=== PATIENT | male | born 1945 | race Caucasian/White ===

== ENCOUNTER 2025-06-23 08:41 | Outpatient (AMB) | payer BC, SELFPAY ==
--- NOTE | 2025-06-23 08:42 | A.OFFVIS_ITS ---
Intake Visit Reasons: 6m Allergies No Known Allergies Allergy (Verified 06/22/25 09:35) Medication List - Last Reconciled 06/23/25 by Jennifer Irving MD lovastatin 20 mg PO QPM oxcarbazepine 600 mg PO BID HPI Comments Details: 80 yr old man with Sz disorder. No Sz recurrence. Noted to be forgetful if something out of routine happens. Lives with and gets agitated at times. Lives with with mental problems. Walks 5 days a week. Still driving is slightly declining, mostly local. . Feels fine with no seizures or side effects. Routines are normal. Walks 45-60 minutes. Runs errands. Spends time with daughter. Watches TV and uses ipad. Still socailizes. He has a history of seizures that started in October of 1999 with nocturnal generalized tonic-clonic seizure. His MRI was unremarkable except for some nonspecific T2 hyperintensities. He was put on oxcarbazepine and has been well controlled. Prior to that he was on carbamazepine and had developed a drug rash. He's had no seizure recurrence and more than 10 years. His EEGs have been mildly abnormal due to bursts of sharp theta discharges in the temporal regions, left greater than right. .Doing well. Sleeps well. Exercises 1 hour walk daily. He had open-heart surgery 2009 and has been doing well. He had a valve repair and possibly repair of an aneurysm at [facility]. Heart check up [place]. [facility] Medical History (Updated 06/23/25 @ 08:44 by Jennifer Irving MD) MCI (mild cognitive impairment) Coronary atherosclerosis Seizure disorder Review of Systems Const Details: ?ROS: ? General/Constitutional Change in appetite?denies.?Fatigue?denies.?Fever?denies.?Weight gain?denies.? Weight loss?denies. ? Sleep Difficulty getting to sleep?denies.?Difficulty maintaining sleep?denies?.? Daytime sleepiness?denies. ? Respiratory Shortness of breath?denies.?Chest pain?denies. ? Cardiovascular Chest pain at rest?denies.?Chest pain with exertion?denies.?Dizziness?denies.? Fluid accumulation in the legs?denies.?Irregular heartbeat?denies.?Palpitations ?denies. ? Gastrointestinal Constipation?denies.?Diarrhea?denies.?Difficulty swallowing?denies.?Heartburn ?denies.?Nausea?denies. ? Genitourinary Frequent urination?denies.?Urgency?denies.?Incontinence?denies. ? Musculoskeletal Neck pain?denies.?Back pain?denies.?Joint stiffness?denies.?Sciatica?denies. ? Neurologic Difficulty swallowing?denies.?Balance difficulty?denies.?Coordination?normal.? Difficulty speaking?denies.?Dizziness?denies.?Fainting?denies.?Gait abnormality ?denies.?Headache?denies.?Loss of strength?denies.?Loss of use of extremity ?denies.?Low back pain?denies.?Memory loss?denies.?Seizures?denies.?Tics ?denies.?Tingling/Numbness?denies.?Transient loss of vision?denies.?Tremor ?denies. ? Psychiatric Anxiety?denies.?Auditory/visual hallucinations?denies.?Delusions?denies.? Depressed mood?denies.?Stressors?denies.?Suicidal thoughts?denies. Physical Exam Neuro Other: Abnormal neurological findings:??none.? Mental Status:?alert and oriented X 3,?Normal attention, orientation, memory and affect.? Cranial Nerves:?Pupils are equal, round and reactive to light. Fundoscopy shows normal disc bilaterally. External occular muscles are intact. Visual dickey are full, no ptosis. Face is symmetrical, no facial weakness or droop. Facial sensations are normal. Tongue protrudes in midline. Palate elevates symmetrically. Shoulder shrugging is normal..? Motor Examination:?Normal muscle tone, bulk and strength,?No atrophy or fasciculations,?No drift of the extended upper extremities,?Deep tendon reflexes are 2+?,?Plantars are flexor?.? Straight Leg Raising:?90 degrees.? Sensory Exam:?Normal light touch, temperature, pinprick, vibration and joint- position sensations?,?Rhomberg sign is absent.? Coordination:?no ataxia,?no titubation,?yivqbz-mj-tayq, ivjd-uirr-fnmv test and rapid alternating movements were normal.? Gait Exam:?Within normal limits.? Cerebellar Signs:?Vpuqpt-dz-uwuo and tznl-ym-vdyw is normal,?no dysdiadochokinesia?.? Extrapyramidal System:?No tremor, rigidity with normal facial expressions,?No bradykinesia, no bradyphrenia. Normal arm swing and posture. No propulsion or retropulsion.? Speech:?Normal,?no dysphasia or dysarthria..? General Examination GENERAL APPEARANCE:?normal,?in no acute distress.? HEART:?S1, S2 normal,?no murmurs.? LUNGS:?clear anteriorly and posteriorly.? MUSCULOSKELETAL:?normal.? EXTREMITIES:?no edema.? PSYCH:?alert, oriented,?cognitive function intact,?cooperative with exam.? Mini Mental Status Exam Level of Consciousness:?Alert.? Orientation:?Knows correct year, month, date, day and season,?Knows correct city, county and state. Knows correct location and floor.? Registration:?Able to register 3 objects.? Attention:?Serial 7's performed accurately.? Recall:?Able to recall 3 out of 3 objects.? Language:?Normal spontaneous speech, fluency, repetition,naming, comprehension, reading and writing.? Total Score:?30/30.? Results Reviewed Results Reviewed: 01/23/2025 EEG: Background activity consists of 7.5 hertz diffuse slow alpha with sweeper imposed 6-7 hertz theta frequencies consistent with diffuse background slowing. No paroxysmal features are seen Assessment & Plan Assessment & Plan (1) Seizure disorder: Code(s): G40.909 - Epilepsy, unspecified, not intractable, without status epilepticus Category: Medical (2) MCI (mild cognitive impairment): Code(s): G31.84 - Mild cognitive impairment of uncertain or unknown etiology Category: Medical Plan Continue current medications Medications: New oxcarbazepine 600 mg PO BID 180 tabs 3RF 90 days Coding Level of Care Code Est Pt Level 4 (73245) Diagnoses Seizure disorder G40.909 MCI (mild cognitive impairment) G31.84
--- OUTSIDE RECORDS SUMMARY | 2025-06-23 09:20 | XMS_ITS | Clinical Summary ---
Author Organization [facility] Address [address] [place] [address] Phone Care Team Providers Care Principal Librarian Name Role Phone Katey Ayers TRACK LAYING EQUIPMENT OPERATOR Primary Care Provider Allergies No known active allergies Medications aspirin 325 MG EC tablet Take 325 mg by mouth daily. Active lovastatin (MEVACOR) 20 MG tablet Take 20 mg by mouth nightly. Active OXcarbazepine (TRILEPTAL) 600 MG tablet Take 600 mg by mouth 2 (two) times a day. Active amoxicillin (AMOXIL) 500 MG capsule Take four 500mg capsules (2000mg total) one hour prior to dental procedure. Active Active Problems Problem Noted Date Diagnosed Date S/P AVR 06/12/2018 Thoracic aortic aneurysm without rupture 018 Essential hypertension 06/12/2018 Other hyperlipidemia 06/12/2018 Immunizations Immunization Administration Dates Next Due Pneumococcal polysaccharide PPSV23 05/06(Deferred: Other - PCP office confirms that vaccine given june of 2010.) Social History Tobacco Use Types Packs/Day Years Used Date Smoking Tobacco: Never Smokeless Tobacco: Never Tobacco Cessation:Counseling Given: Not Answered Alcohol Use Standard Drinks/Week Comments Never 0 (1 standard drink = 0.6 oz pur e alcohol) Education Answer Date Recorded Are you interested in more education? Not on hilario e 01/20/2023 Are you concerned about learning? Not on file 01/20/2023 No 01/20/2023 No 01/20/2023 Digital Access Answer Date Recorded No 02/11/2023 No 02/11/2023 Reliable internet access at home? Not on file 02/11/2023 Device with a working camera? Not on file Sex and Gender Information Value Date Recorded Sex Assigned at Not on file Legal Sex Male 5:39 PM EST Gender Identity Not on file Sexual Orientation Not on file Last Filed Vital Signs Vital Sign Reading Time Taken Comments Blood Pressure 128/60 07/21/2024 12:39 PM EST Pulse 61 07/21/2024 12:39 PM EST Temperature - - Respiratory Rate 12 07/21/2024 12:39 PM EST Oxygen Saturation 95% 01/07/2014 12:00 AM EDT Inhaled Oxygen Concentration - - Weight 69.9 kg (154 lb) 07/21/2024 12:39 PM EST Height 165.1 cm (5' 5 ) 07/21/2024 10:23 AM EST Body Mass Index 25.63 07/21/2024 10:23 AM EST Plan of Treatment Upcoming Encounters Date Type Department Care Team (Late st Contact Info) Description 07/25/2024 Procedure Pass [facility] [place] [place] [address] [place] [id number] 07/27/2025 11:30 AM EST Appointment [facility] [address] [place] [address] Brionna Urena MD [address] [address] [email or web address] 07/27/2025 1:30 PM EST Office Visit [facility]ovascular Medicine [address] [facility], 5th Floor, [address] [place] [address] Brionna Urena MD [address] [address] [email or web address] Health Maintenance Due Date Last Done Comments Adult Td,Tdap Booster 1945 DEPRESSION SCREENING 1957 LIPID PANEL 1963 PNEUMOCOCCAL VACCINES (50+ years) (1 of 1 - PCV) 1995 ZOSTER VACCINES (1 of 2) 1995 RSV VACCINE (1 - 1-dose 75+ series) 2020 BLOOD PRESSURE 01/18/2025 07/21/2024 INFLUENZA VACCINE (#1) 2025 07/22/2020 COVID-19 VACCINE (3 - 2024-2 6 season) 2025 11/05/2020, 10/15/2020 SMOKING STATUS SCREENING (On ce After 26 Yrs) Completed 07/21/2024 HEPATITIS A VACCINES Aged Out No long er eligible based on patient's age to complete this topic HIB VACCINES Aged Out No longer eligi ble based on patient's age to complete this topic MENINGOCOCCAL VACCINES (ACWY) Aged Out No longer eligible based on patient's age to complete this topic MENINGOCOCCAL VACCINES (B) Aged Out N o longer eligible based on patient's age to complete this topic Medical Devices Not on file Insurance MEDICARE PPO BLUE REPLACEMENT [facility] MEDICARE PPO BLUE REPLACEMENT MEDICARE PPO BLUE REPLACEMENT MEDICARE PPO BLUE REPLACEMENT MEDICARE PPO BLUE [place] [address] [place] [address] MEDICARE PPO BLUE [place] [address] [place] [address] MEDICARE PPO BLUE REPLACEMENT MEDICARE PPO BLUE REPLACEMENT MEDICARE PPO BLUE REPLACEMENT Care Teams Principal Librarian Relationship Specialty Start Date End Date Katey Ayers NP [address] [place] [address] PCP - General Family Medicine 06/10/18 Additional Source Comments The information contained in this document represents components of the legal health record. It is not the complete legal health record.[facility]
--- OUTSIDE RECORDS SUMMARY | 2025-06-23 09:20 | XMS_ITS | Encounter Summary ---
Author Organization [facility] Address [address] [place], [place] [address] [place] [address] Phone Care Team Providers Care Interstate Bus Dispatcher Name Role Phone Katey Ayers TELECASTING TECHNICIAN Primary Care Provider Encounter Details Date Type Department Care Team (Late st Contact Info) Description 07/17/2022 Procedure Pass [facility] Cardiac US [address] [place] [id number] Social History Tobacco Use Types Packs/Day Years Used Date Smoking Tobacco: Never Smokeless Tobacco: Never Alcohol Use Standard Drinks/Week Comments Never 0 (1 standard drink = 0.6 oz pur e alcohol) Sex and Gender Information Value Date Recorded Sex Assigned at Not on file Legal Sex Male 5:39 PM EST Gender Identity Not on file Sexual Orientation Not on file documented as of this encounter Plan of Treatment Upcoming Encounters Date Type Department Care Team (Late st Contact Info) Description 07/25/2024 Procedure Pass [facility] Cardiac US [address] [place] [address] 07/27/2025 11:30 AM EST Appointment [facility] Cardiac US [address] [place] [address] Brionna Urena MD [address] [address] [email or web address] 07/27/2025 1:30 PM EST Office Visit [facility] Cardiovascular Medicine [address] [facility], 5th Floor, [address] [place] [address] Brionna Urena MD [address] [facility] [address] [place] [address] [email or web address] documented as of this encounter Visit Diagnoses Not on filedocumented in this encounter Care Teams Interstate Bus Dispatcher Relationship Specialty Start Date End Date Katey Ayers NP [address] [place] [id number] PCP - General Family Medicine 06/10/18 documented as of this encounter Additional Source Comments The information contained in this document represents components of the legal health record. It is not the complete legal health record.[facility]
--- OUTSIDE RECORDS SUMMARY | 2025-06-23 09:20 | XMS_ITS | Clinical Summary ---
Author Organization [facility] Address [address] [place] [address] Care Team Providers Care Executive Compensation Analyst Name Role Phone Katey Ayers MD Primary Care Provider [phone] Allergies No known active allergies Medications amoxicillin (AMOXIL) 500 mg capsule Take four 500mg capsules (2000mg total) one hour prior to dental procedure. Active aspirin 325 mg EC tablet Take 325 mg by mouth daily. Active betamethasone dipropionate 0.05 % lotion APPLY TWICE DAILY TO SCALP NEEDED 1 Active lovastatin (MEVACOR) 20 mg tablet Take 20 mg by mouth daily. Active OXcarbazepine (TRILEPTAL) 600 mg tablet Take 600 mg by mouth 2 times a day. 1 Active tacrolimus (PROTOPIC) 0.1 % ointment APPLY ON THE SKIN TWICE A DAY NEEDED RASH NOT TO FACE OR BODY FOLDS (PRIOR AUTH) 1 Active triamcinolone acetonide (KENALOG) 0.1% ointmentIndicatio ns:Psoriasis Apply twice daily for two weeks then once daily to psoriasis on limbs and body as needed. Not for face, underarms, genitals. 454 g 3 1 Active betamethasone dipropionate 0.05 % lotionIndications :Psoriasis Apply to scalp at bedtime for psoriasis or itching 45 mL 1 Active Active Problems No known active problems Social History Tobacco Use Types Packs/Day Years Used Date Smoking Tobacco: Never Assessed Sex and Gender Information Value Date Recorded Sex Assigned at Not on file Legal Sex Male 9:25 AM EDT Gender Identity Not on file Sexual Orientation Not on file Last Filed Vital Signs Vital Sign Reading Time Taken Comments Blood Pressure - - Pulse - - Temperature - - Respiratory Rate - - Oxygen Saturation - - Inhaled Oxygen Concentration - - Weight 65.8 kg (145 lb) 02/17/2021 2:00 PM EDT Height 157.5 cm (5' 2 ) 02/17/2021 2:00 PM EDT Body Mass Index 26.52 02/17/2021 2:00 PM EDT Plan of Treatment Health Maintenance Due Date Last Done Comments DTaP,Tdap,and Td Vaccines (1 - Tdap) 1967 Pneumococcal Vaccine: 50+ Ye ars (1 of 1 - PCV) 1995 Zoster Vaccines (1 of 2) 1995 RSV Vaccine (60+ years old a nd patients) (1 - 1-dose 75+ series) 2020 Alcohol/Substance Use Screening 09/17/2024 Health Care Proxy Review 09/17/2024 COVID-19 Vaccine (1 - 2023-2 5 season) 2025 Influenza Vaccine (#1) 2025 Hepatitis B Vaccines Aged Out No long er eligible based on patient's age to complete this topic Insurance BCBS MCR REPLACE PPO Care Teams Executive Compensation Analyst Relationship Specialty Start Date End Date Katey Ayers MD [address] [place] [id number] PCP - General 01/20/21
--- OUTSIDE RECORDS SUMMARY | 2025-06-23 09:20 | XMS_ITS | Encounter Summary ---
Author Organization [facility] Address [address] [place] [address] Phone Care Team Providers Care Noodle Maker Name Role Phone Sim Alonzo DO Primary Care Provider Un available Katey Ayers NP Primary Care Provider Encounter Details Date Type Department Care Team (Latest Contact Info) Description 11/27/2015 Ancillary Orders [facility] Cardiovascular Medicine [address] [facility], 5th Floor, [address] [place] [address] Brionna Urena MD [address] [facility] [address] [place] [address] [email or web address] Thoracic aortic aneurysm without rupture (Primary Dx) Social History Tobacco Use Types Packs/Day Years Used Date Smoking Tobacco: Never Sex and Gender Information Value Date Recorded Sex Assigned at Not on file Legal Sex Male 5:39 PM EST Gender Identity Not on file Sexual Orientation Not on file documented as of this encounter Plan of Treatment Upcoming Encounters Date Type Department Care Team (Late st Contact Info) Description 07/25/2024 Procedure Pass [facility] Cardiac US [address] [place] [address] 07/27/2025 11:30 AM EST Appointment [facility] Cardiac US [address] [place] [address] Brionna Urena MD [address] [address] [email or web address] 07/27/2025 1:30 PM EST Office Visit [facility] Cardiovascular Medicine [address] [facility], 5th Floor, [address] [place] [address] Brionna Urena MD [address] [address] [email or web address] documented as of this encounter Results * TTE COMPREHENSIVE (01/08/2017 9:31 AM EDT) Body Surface Area 1.75 m2 Left Ventricle Internal Diameter End Diastole 37 42 - 58 mm Left Ventricle Internal Diameter End Systole 25 25 - 40 mm Raw LV EF% 54 % Left Ventricular Apical Contribution 10.00 Ejection Fraction 64 50 - 75 % Aortic Sinus Diameter 34 mm Left Atrium Dimension Anterior-Posterior 40 15 - 40 mm Height 163.0 cm Weight 70.0 kg Ascending Aorta Diameter 32.0 mm Left Ventricular Posterior Wall Thickness 10 mm Interventricular Septum Thickness 11 mm Aortic Valve Sinus Index 1 19 20 - 32 mm Ascending Aorta Diameter 18 mm Aortic Sinus Index 19 mm Ascending Aorta Index 18 mm Right Atrium Index Superior-Inferior 27 mm Right Atrium Dimension Medial-Lateral 22 mm Left Ventricular Outflow Tract Velocity 1.0 m/s Right Atrium Dimension Superior-Inferior 47 mm Right Atrium Dimension Medial-Lateral 38 mm Tricuspid Valve Peak Velocity 2.40 m/s Right Ventricle Peak Systolic Pressure 33 mmHg Right Atrium Pressure Estimated 10 mmHg Right Ventricle to Right Atrium Pressure Gradient 23 mmHg Aortic Valve Prosthetic Mean Gradient 7 mmHg Aortic Valve Prosthetic Peak Gradient 14 mmHg Left Atrium Dimension Superior-Inferior 52.0 29 - 53 mm Left Atrium Dimension Medial-Lateral 33.0 29 - 49 mm Right Atrium Index Superior-Inferior 27 mm Right Atrium Dimension Medial-Lateral 22 mm Anatomical Region Laterality Modality Heart Ultrasound Narrative 01/08/2017 3:32 PM EDT Normal biventricular size and function. Well functioning aortic bioprosthetic valve. Normal estimated RVSP. Left Ventricle Left ventricular cavity size is normal. Left ventricular systolic function is normal. There are no segmental left ventricular wall motion abnormalities noted. The estimated ejection fraction is 64% (Normal 50-75%). The left ventricular ejection fraction was measured by the single dimension method. Right Ventricle The right ventricular size is normal. The right ventricular systolic function is normal. Left Atrium The left atrium is normal in size. Right Atrium The right atrium is normal in size. Mitral Valve There is posterior mitral annular calcification. There is no evidence of mitral valve prolapse. There is trace mitral regurgitation detected by spectral and color Doppler. Tricuspid Valve There is evidence of trace tricuspid regurgitation by color and spectral Doppler. The RV systolic pressure was estimated from the peak TV regurgitant velocity (assuming an RA pressure of 10 mmHg). The estimated RV systolic pressure is 33 mmHg. Aortic Valve There is a bioprosthetic valve in the aortic position. The peak gradient is 14 mmHg. The mean gradient is 7 mmHg. The prosthetic leaflets are thin and normally mobile. The prosthetic valve is in a well seated position. There is no evidence of a paravalvular leak by Doppler. There appears to be a surgically implanted graft in the ascending aorta. The LVOT velocity is 1 m/s. The peak velocity was obtained from the right parasternal position. Pulmonic Valve There is evidence of trace pulmonary regurgitation by color and spectral Doppler. Pericardium There is no evidence of pericardial effusion. There is evidence of epicardial fat. Interventricular Septum Abnormal interventricular septal motion is consistent with post-operative state. General Findings The image quality was fair (3). Comparison Findings Compared to a prior report from 11/01/2011, no important changes. rBionna Urena MD CV ECHO ORDERABLES Final Result documented in this encounter Visit Diagnoses Diagnosis Thoracic aortic aneurysm without rupture- Primary Thoracic aortic aneurysm without rupture documented in this encounter Care Teams Noodle Maker Relationship Specialty Start Date End Date Sim Alonzo DO PCP - General 03/17/14 06/09/18 Katey Ayers NP [address] [place] [id number] PCP - General Family Medicine 06/10/18 documented as of this encounter Additional Source Comments The information contained in this document represents components of the legal health record. It is not the complete legal health record.[facility]
--- OUTSIDE RECORDS SUMMARY | 2025-06-23 09:20 | XMS_ITS | Encounter Summary ---
Author Organization [facility] Address [address] [place], [place] [address] [place] [address] Phone Care Team Providers Care Hand Ironer Name Role Phone Katey Ayers UNATTENDED GROUND SENSOR SPECIALIST Primary Care Provider Encounter Details Date Type Department Care Team (Late st Contact Info) Description 05/21/2021 Procedure Pass [facility] Cardiac US [address] [place] [phone] Social History Tobacco Use Types Packs/Day Years [...] st Contact Info) Description 07/25/2024 Procedure Pass [facility] Cardiac US [address] [place] [address] 07/27/2025 11:30 AM EST Appointment [facility] Cardiac US [address] [place] [address] Brionna Urena MD [address] [address] [email or web address] 07/27/2025 1:30 PM EST Office Visit [facility] Cardiovascular Medicine [address] [facility], 5th Floor, [address] [place] [address] Brionna Urena MD [address] [facility] [address] [place] [address] [email or web address] documented as of this encounter Visit Diagnoses Not on filedocumented in this encounter Care Teams Hand Ironer Relationship Specialty Start Date End Date Katey Ayers NP [address] [place] [id number] PCP - General Family Medicine 06/10/18 documented as of this encounter Additional Source Comments The information contained in this document represents components of the legal health record. It is not the complete legal health record.[facility]
--- OUTSIDE RECORDS SUMMARY | 2025-06-23 09:20 | XMS_ITS | Clinical Summary ---
Author Organization [address] Address [address] [place] [phone] Phone Care Team Providers [employer] Vulcanizer Name Role Phone Peter Leos DO Primary Care Provider [phone] Social History Tobacco Use Types Packs/Day Years Used Date Smoking Tobacco: Never Assessed Sex and Gender Information Value Date Recorded Sex Assigned at Not on file Legal Sex Male 11:39 PM EST Gender Identity Not on file Sexual Orientation Not on file Plan of Treatment Health Maintenance Due Date Last Done Comments DTaP,Tdap,and Td Vaccines (1 - Tdap) 1964 Pneumococcal Vaccine: 50+ Years (1 of 1 - PCV) 1995 Zoster Vaccines (1 of 2) 1995 RSV Immunization Adult Patients (1 - 1-dose 75+ series) 2020 Falls Risk Assessment 08/20/2022 Medicare Annual Wellness Visit 08/20/2022 Social Influencers of Health Screening 08/20/2022 Depression Screening 09/17/2024 COVID-19 Vaccine ( season) 2025 08/29/2024, 08/31/2022, 07/07/2021, Additional history exists Influenza Vaccine (#1) 2025 , 07/26/2023, 07/24/2022, Additional history exists Hypertension/CHF/CAD Annual BMP Blood Test 05/05/2026 05/05/2025 Cholesterol Screening (Lipid Panel) 05/05/2030 05/05/2025, 08/22/2024 HIB Vaccines Aged Out No longer eligi ble based on patient's age to complete this topic HPV Vaccines Aged Out No longer eligi ble based on patient's age to complete this topic Hepatitis A Vaccines Aged Out No long er eligible based on patient's age to complete this topic Hepatitis B Vaccines Aged Out No long er eligible based on patient's age to complete this topic IPV Vaccines Aged Out No longer eligi ble based on patient's age to complete this topic MMR Vaccines Aged Out No longer eligi ble based on patient's age to complete this topic Meningococcal ACWY Vaccine Aged Out N o longer eligible based on patient's age to complete this topic Meningococcal B Vaccine Aged Out No l onger eligible based on patient's age to complete this topic RSV Immunization Patients Under 20 months Aged Out No longer eligible based on patient's age to complete this topic Varicella Vaccines Aged Out No longer eligible based on patient's age to complete this topic Procedures Procedure Name Priority Date/Time Associated Diagnosis Comments CBC WITH AUTO DIFFERENTIAL Routine 05/05/2025 1:06 PM EDT Hyperlipemia 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 HEMOGLOBIN A1C Routine 05/05/2025 1:06 PM EDT Hyperlipemia Routine general medical examination at a [facility] with peromeli Abnormal finding of blood chemistry, unspecified COMPREHENSIVE METABOLIC PANEL Routine 05/05/2025 1:06 PM EDT Hyperlipemia 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 CBC AND DIFFERENTIAL Routine 05/05/2025 1:06 PM EDT Hyperlipemia 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 THYROID STIMULATING HORMONE Routine 05/05/2025 1:06 PM EDT Hyperlipemia 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 PROSTATE SPECIFIC ANTIGEN SCREEN Routine 05/05/2025 1:06 PM EDT Hyperlipemia 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 Blood Venous blood specimen / Unknown Venipuncture / Unknown 05/05/2025 1:06 PM EDT 05/05/2025 1:[address] [facility] - 05/05/2025 5:46 PM EDT The Siemens Advia Centaur Chemiluminescent Immunoassay is used. Results obtained with different assay methods or kits cannot be used interchangeably. Results cannot be interpreted as absolute evidence of the presence or absence of malignant disease. us Katey Ayers NP LAB BLOOD ORDERABLES [facility] Result [facility] [address] [place] [address], [place] [phone] * (ABNORMAL) Lipid panel with reflex to direct LDL (05/05/2025 1:06 PM EDT) Pathologist [facility] Cholesterol 132 0 - 200 mg/dL LAB CHEMISTRY METHOD 05/05/2025 4:[address] [facility] Triglycerides 168(H) 0 - 150 mg/dL LAB CHEMISTRY METHOD 05/05/2025 4:[address] [facility] HDL 45 >=40 mg/dL LAB CHEMISTRY METHOD 05/05/2025 4:[address] [facility] LDL Calculated 53 0 - 100 mg/dL LAB CHEMISTRY METHOD 05/05/2025 4:[address] [facility] Comment:Estimated LDL Calcul ated using equation: Total cholesterol - HDL cholesterol - (Triglycerides/5) VLDL Cholesterol Terry 33.6 mg/dL LAB CHEMISTRY METHOD 05/05/2025 4:[address] [facility] Non HDL Chol. (LDL+VLDL) 87 <145 mg/dL LAB CHEMISTRY METHOD 05/05/2025 4:[address] [facility] Chol/HDL Ratio 2.9 0.0 - 4.4 LAB CHEMISTRY METHOD 05/05/2025 4:[address] [facility] Blood Venous blood specimen / Unknown Venipuncture / Unknown 05/05/2025 1:06 PM EDT 05/05/2025 1:06 PM EDT Katey Ayers SERVICE RESTORER EMERGENCY LAB BLOOD ORDERABLES nal Result [facility] [address] [place] [address], [place] [phone] * CBC auto differential (05/05/2025 1:06 PM EDT) WBC 6.2 4.8 - 10.8 K/mcL LAB HEMETOLOGY METHOD 05/05/2025 3:[address] [facility] RBC 4.90 4.50 - 5.50 M/mcL LAB HEMETOLOGY METHOD 05/05/2025 3:[address] [facility] Hemoglobin 14.5 13.5 - 17.5 g/dL LAB HEMETOLOGY METHOD 05/05/2025 3:[address] [facility] Hematocrit 43.1 42.0 - 54.0 % LAB HEMETOLOGY METHOD 05/05/2025 3:[address] [facility] MCV 88.0 79.0 - 98.0 FL LAB HEMETOLOGY METHOD 05/05/2025 3:[address] [facility] MCH 29.6 27.0 - 32.0 pcg LAB HEMETOLOGY METHOD 05/05/2025 3:[address] [facility] MCHC 33.6 32.0 - 37.0 g/dL LAB HEMETOLOGY METHOD 05/05/2025 3:27 PM [facility] RDW 12.3 11.0 - 15.0 % LAB HEMETOLOGY METHOD 05/05/2025 3:[address] [facility] Platelets 149 130 - 400 K/mcL LAB HEMETOLOGY METHOD 05/05/2025 3:27 PM [facility] MPV 9.8 7.0 - 11.0 FL LAB HEMETOLOGY METHOD 05/05/2025 3:27 PM [facility] NRBC 0.0 <1.0 % LAB HEMETOLOGY METHOD 05/05/2025 3:[address] [facility] NRBC Absolute 0.00 <0.10 K/mcL LAB HEMETOLOGY METHOD 05/05/2025 3:27 PM [facility] Neutrophils Relative 61.3 % LAB HEMETOLOGY METHOD 05/05/2025 3:27 PM [facility] Lymphocytes Relative 31.2 % LAB HEMETOLOGY METHOD 05/05/2025 3:27 PM [facility] Monocytes Relative 6.0 % LAB HEMETOLOGY METHOD 05/05/2025 3:27 PM [facility] Eosinophils Relative 0.7 % LAB HEMETOLOGY METHOD 05/05/2025 3:27 PM [facility] Basophils Relative 0.3 % LAB HEMETOLOGY METHOD 05/05/2025 3:27 PM [facility] Immature Granulocytes Relative 0.5 % LAB HEMETOLOGY METHOD 05/05/2025 3:[address] [facility] Neutrophils Absolute 3.77 1.50 - 7.00 K/mcL LAB HEMETOLOGY METHOD 05/05/2025 3:[address] [facility] Lymphocytes Absolute 1.92 1.00 - 5.00 K/mcL LAB HEMETOLOGY METHOD 05/05/2025 3:[address] [facility] Monocytes Absolute 0.37 0.20 - 1.00 K/mcL LAB HEMETOLOGY METHOD 05/05/2025 3:[address] [facility] Eosinophils Absolute 0.04 0.00 - 0.50 K/mcL LAB HEMETOLOGY METHOD 05/05/2025 3:[address] [facility] Basophils Absolute 0.02 0.00 - 0.20 K/mcL LAB HEMETOLOGY METHOD 05/05/2025 3:[address] [facility] Immature Granulocytes Absolute 0.03 0.00 - 0.03 K/mcL LAB HEMETOLOGY METHOD 05/05/2025 3:[address] [facility] Blood Venous blood specimen / Unknown Venipuncture / Unknown 05/05/2025 1:06 PM EDT 05/05/2025 1:06 PM EDT us Katey Ayers [employer] EMERGENCY LAB BLOOD ORDERABLES Fi nal Result [facility] [address] [place] [address], * Thyroid stimulating hormone (05/05/2025 1:06 PM EDT) TSH 1.63 0.40 - 4.00 mcIU/mL LAB CHEMISTRY METHOD 05/05/2025 5:[address] [facility] Blood Venous blood specimen / Unknown Venipuncture / Unknown 05/05/2025 1:06 PM EDT 05/05/2025 1:06 PM EDT us Katey Ayers SERVICE REST[employer]ER EMERGENCY LAB BLOOD ORDERABLES Fi nal Result [facility] [address] [place] [address], [place] [phone] * Hemoglobin A1c (05/05/2025 1:06 PM EDT) [facility] Hemoglobin A1C 5.4 <6.5 % LAB CHEMISTRY METHOD 05/05/2025 9:[address] [facility] Mean Bld Glu Estim. 108 mg/dL LAB CHEMISTRY METHOD 05/05/2025 9:[address] [facility] Blood Venous blood specimen / Unknown Venipuncture / Unknown 05/05/2025 1:06 PM EDT 05/05/2025 1:06 PM EDT us Katey Ayers SERVICE REST[employer]ER EMERGENCY LAB BLOOD ORDERABLES Fi nal Result Performing Organization Address City/[facility]/ZIP Co de Phone Number [facility] [address] [place] [address], [place] [phone] * Creatine kinase (05/05/2025 1:06 PM EDT) [facility] Total CK 63 22 - 269 unit/L LAB CHEMISTRY METHOD 05/05/2025 4:[address] [facility] Blood Venous blood specimen / Unknown Venipuncture / Unknown 05/05/2025 1:06 PM EDT 05/05/2025 1:06 PM EDT us Katey Ayers SERVICE REST[employer]ER EMERGENCY LAB BLOOD ORDERABLES Fi nal Result [facility] [address] [place] [address], [place] [phone] * (ABNORMAL) Comprehensive metabolic panel (05/05/2025 1:06 PM ED) Sodium 134 133 - 145 mmol/L LAB CHEMISTRY METHOD 05/05/2025 4:05 PM [facility] Potassium 4.0 3.5 - 5.5 mmol/L LAB CHEMISTRY METHOD 05/05/2025 4:05 PM [facility] Chloride 101 96 - 110 mmol/L LAB CHEMISTRY METHOD 05/05/2025 4:05 PM [facility] CO2 27 21 - 32 mmol/L LAB CHEMISTRY METHOD 05/05/2025 4:05 PM [facility] Anion Gap 6 3 - 11 LAB CHEMISTRY METHOD 05/05/2025 4:05 PM [facility] Glucose 85 70 - 100 mg/dL LAB CHEMISTRY METHOD 05/05/2025 4:05 PM [facility] BUN 13 5 - 25 mg/dL LAB CHEMISTRY METHOD 05/05/2025 4:05 PM [facility] Creatinine 0.67(L) 0.70 - 1.30 mg/dL LAB CHEMISTRY METHOD 05/05/2025 4:05 PM [facility] eGFR 95 >=60 mL/min/1. 73m2 LAB CHEMISTRY METHOD 05/05/2025 4:05 PM [facility] Comment:Calculation based on the Chronic Kidney Disease Epidemiology Collaboration (CKD-EPI) equation refit without adjustment for race. BUN/Creatinine Ratio 19.4 LAB CHEMISTRY METHOD 05/05/2025 4:05 PM [facility] Calcium 8.4(L) 8.5 - 10.5 mg/dL LAB CHEMISTRY METHOD 05/05/2025 4:05 PM [facility] AST (SGOT) 18 10 - 42 unit/L LAB CHEMISTRY METHOD 05/05/2025 4:05 PM [facility] ALT (SGPT) 27 10 - 60 unit/L LAB CHEMISTRY METHOD 05/05/2025 4:[address] [facility] Alkaline Phosphatase 119 42 - 121 unit/L LAB CHEMISTRY METHOD 05/05/2025 4:[address] [facility] Total Protein 7.0 6.0 - 8.0 g/dL LAB CHEMISTRY METHOD 05/05/2025 4:[address] [facility] Albumin 4.3 3.2 - 5.0 g/dL LAB CHEMISTRY METHOD 05/05/2025 4:[address] [facility] Total Bilirubin 0.5 0.0 - 1.4 mg/dL LAB CHEMISTRY METHOD 05/05/2025 4:[address] [facility] Blood Venous blood specimen / Unknown Venipuncture / Unknown 05/05/2025 1:06 PM EDT 05/05/2025 1:06 PM EDT Katey Ayers SERVICE [employer]ER EMERGENCY LAB BLOOD ORDERABLES Fi nal Result [facility] [address] [place] [address], from Last 3 Months Insurance [employer] - [place] MEDICARE ADVANTAGE Care Teams [employer] Relationship Specialty Start Date End Date Peter Leos DO [address] [place] [phone] PCP - General Internal Medicine 08/22/24
--- OUTSIDE RECORDS SUMMARY | 2025-06-23 09:20 | XMS_ITS | Encounter Summary ---
Author Organization [facility] Address [address] [place] [address] Phone Care Team Providers Care Field Artillery Operations Specialist Name Role Phone Katey Ayers NP Primary Care Provider Encounter Details Date Type Department Care Team (Late st Contact Info) Description 07/30/2023 Procedure Pass [facility] Cardiac US [address] [place] [address] Social History Tobacco Use Types Packs/Day Years [...] Encounters Date Type Department Care Team (Late Contact Info) Description 07/25/2024 Procedure Pass [facility] Cardiac [address] [place] [address] 07/27/2025 11:30 AM EST Appointment [facility] Cardiac [address] [place] [address] Brionna Urena MD [address] [place] [phone] [email or web address] 07/27/2025 1:30 PM EST Office Visit [facility] Cardiovascular Medicine [address]th [address], [address] [place] [address] Brionna Urena MD [address] [place] [phone] [email or web address] documented as of this encounter Visit Diagnoses Not on filedocumented in this encounter Care Teams Field Artillery Operations Specialist Relationship Specialty Start Date End Date Katey Ayers NP [address] [place] [phone] PCP - General Family Medicine 06/10/18 documented as of this encounter Additional Source Comments The information contained in this document represents components of the legal health record. It is not the complete legal health record.[facility]
--- OUTSIDE RECORDS SUMMARY | 2025-06-23 09:20 | XMS_ITS | Encounter Summary ---
Author Organization [facility] Address [address] [place], [place] [address] [place] [address] Phone Care Team Providers Care Hardwood Floor Sander Name Role Phone Katey Ayers FRESH FOODS CLERK Primary Care Provider Encounter Details Date Type Department Care Team (Late st Contact Info) Description 06/20/2021 Procedure Pass [facility] [place] [address] [place] [phone] Social History Tobacco Use Types Packs/Day Years [...] st Contact Info) Description 07/25/2024 Procedure Pass [facility] [address] [place] [address] 07/27/2025 11:30 AM EST Appointment [facility] [address] [place] [address] Brionna Urena MD [address] [phone] [email or web address] 07/27/2025 1:30 PM EST Office Visit [facility] Cardi[facility] Medicine [address] [facility]th [address], [address] [place] [address] Brionna Urena MD [address] [facility] [address] [place] [address] [email or web address] documented as of this encounter Visit Diagnoses Not on filedocumented in this encounter Care Teams Hardwood Floor Sander Relationship Specialty Start Date End Date Katey Ayers NP [address] [place] [phone] PCP - General Family Medicine 06/10/18 documented as of this encounter Additional Source Comments The information contained in this document represents components of the legal health record. It is not the complete legal health record.[facility]
== END 2025-06-23 08:56 | disposition home or self-care (01) ==
LOC: HO.HSM 08:41
PROVIDERS: PCP Internal Medicine; Visit Provider Psychiatry & Neurology Neurology
DX: G40.909 Epilepsy, unspecified, not intractable, without status epilepticus (principal); G31.84 Mild cognitive impairment of uncertain or unknown etiology
CPT/HCPCS: 99214